=== PATIENT | male | born 1980 | race Caucasian/White ===

== ENCOUNTER 2020-09-07 16:23 | Emergency (ER) | payer BC ==
[~2020-09-07] VITALS: Ht 182.9 cm; Wt 98.4 kg
[2020-09-07 16:29] VITALS: BP 122/80
[2020-09-07] MEDS ORDERED: ACETAMINOPHEN EXTRA STRENGTH 500 MG TAB PO ONE (17:25)
[2020-09-07] MEDS ORDERED: IBUPROFEN 600 MG TAB PO ONE (17:25)
[2020-09-07] MEDS ORDERED: IBUP-2213 PO (17:39)
[2020-09-07 18:34] VITALS: BP 125/66
== END 2020-09-07 18:35 | disposition home or self-care (01) ==
LOC: MED 16:23
DX: R07.89 Other chest pain (principal); Z79.899 Other long term (current) drug therapy
CPT/HCPCS: 71045; 99283

== ENCOUNTER 2021-10-12 22:53 | Emergency (ER) | payer BC ==
[~2021-10-12] VITALS: Ht 182.9 cm; Wt 97.5 kg
[~2021-10-12 22:53] MED LIST: IBUP-2213 PO
[2021-10-12 23:43] VITALS: BP 133/56
--- NOTE | 2021-10-13 00:31 | NUR ---
PT RESTING COMFORTABLY IN BED. SIDE RAILS UP X2
[2021-10-13] MEDS ORDERED: AMOXIL/CLAVULANATE 500/125 MG 1 TAB PO SCH (00:40)
[2021-10-13] MEDS ORDERED: LIDOCAINE MPF 1% 10 MG/ML VIAL INJ ONE (00:50)
[2021-10-13] MEDS ORDERED: AMOXICILLIN 500 MG CAP PO ONE (00:50)
--- NOTE | 2021-10-13 02:23 | NUR ---
LACERATION SET UP AT BEDSIDE. PT DENIES ANY PAIN. RESTING COMFORTABLY RESP EVEN AND UNLABORED
--- NOTE | 2021-10-13 02:49 | NUR ---
Patient has a 4.5 cm laceration to left knee. Dr. Berry applied sutures using sterile technique. Edges well approximated. Site cleansed with NSS. No bleeding noted. Pt tolerated well.
[2021-10-13] MEDS ORDERED: LIDOCAINE MPF 1% 5 ML ONE (02:50)
[2021-10-13] MEDS ORDERED: AMOX500C25 PO (03:13)
[2021-10-13 03:25] VITALS: BP 121/62
--- NOTE | 2021-10-13 03:25 | NUR ---
The patient's care was reviewed and supervised by Claribel Paul RN.
== END 2021-10-13 03:25 | disposition home or self-care (01) ==
LOC: MED 22:53
DX: S71.112A Laceration without foreign body, left thigh, initial encounter (principal); Z79.2 Long term (current) use of antibiotics; Z79.1 Long term (current) use of non-steroidal anti-inflammatories (NSAID); W29.0XXA Contact with powered kitchen appliance, initial encounter; Y92.89 Other specified places as the place of occurrence of the external cause; Y93.89 Activity, other specified; Y99.8 Other external cause status
CPT/HCPCS: 12004; 73562; 90471; 90715; 99283; J2001; Q0092